=== PATIENT | female | born 1990 | race American Indian/Alaskan Native ===

== ENCOUNTER 2021-07-17 09:36 | Emergency (ER) | payer MEDICAID ==
--- NOTE | 2021-07-17 09:50 | Emergency Department Report ---
Minor Respiratory - HPI Chief Complaint: Sore Throat Stated Complaint: SWOLLEN TONSILS Time Seen by Provider: 07/17/21 09:49 Duration: 1 Day Pain Location: Throat Severity: mild Minor Respiratory: Yes Sore Throat, Yes Able to Tolerate Fluids, No Rhinorrhea, No Ear Pain, No Cough, No Sick Contacts, No Hemoptysis, No Chest Pain, No Shortness of Breath, No Fever Other History: Patient is a 31-year-old -[place] female that comes to the ER complaining of tonsil pain since yesterday. She states her tonsils are always swollen. She states that she needs them out but she has not followed up. She has no fever or chills. She is taking p.o. She comes to the ER and ambulance with 2 small children. She denies chest pain or shortness of breath. She is ambulatory, nontoxic [id number] in triage ED Review of Systems ROS: Stated complaint: SWOLLEN TONSILS Other details as noted in HPI Comment: All other systems reviewed and negative ED Past Medical Hx - Past Medical History Previous Medical History?: Yes - Surgical History Past Surgical History?: No - Family History Family history: no significant - Social History Smoking Status: Never Smoker Substance Use Type: None Minor Respiratory Exam - Exam General: Vital signs noted. No distress. Alert and acting appropriately. HEENT: Yes Pharyngeal Erythema, Yes Moist Mucous Membranes, No Pharyngeal Exudates, No Rhinorrhea, No Conjuctival Injection, No Frontal Tenderness, No Maxillary Tenderness Ear: Neither TM Bulge, Neither TM Erythema, Neither EAC Pain, Neither EAC Discharge Neck: Yes Supple, No Adenopathy Lungs: Yes Good Air Exchange, No Wheezes, No Ronchi, No Stridor, No Cough, No Labored Respirations, No Retractions, No Use of Accessory Muscles, No Other Abnormal Lung Sounds Heart: Yes Regular, No Murmur Abdomen: Yes Normal Bowel Sounds, No Tenderness, No Peritoneal Signs Skin: No Rash, No Edema Neurologic: Alert and oriented, no deficits. Musculoskeletal: Unremarkable. ED Medical Decision Making - Medical Decision Making ABCs intact. Vital signs normal. No indication for antibiotics. I have educated patient on the above. Although she is upset it is not in her best interest to give her antibiotics. Vital signs normal as documented by EMS Patient being discharged home with discharge plan of care including diet, activity, medications and follow-up. She verbalizes understanding - Differential Diagnosis Acute on chronic tonsil swelling Critical care attestation.: If time is entered above; I have spent that time in minutes in the direct care of this critically ill patient, excluding procedure time. ED Disposition Clinical Impression: Swollen tonsil Disposition: 01 HOME / SELF CARE / HOMELESS Is pt being admited?: No Does the pt Need Aspirin: No Condition: Stable Additional Instructions: You have no indication for antibiotics at this time. You need to see a primary care or ENT doctor for your nonmedical emergencies. I have given you referrals below. Motrin or Tylenol can be used for your pain. Referrals: WILLIAM ST MD [Staff Physician] - 3-5 Days KALEIGH GAYLE MD [Staff Physician] - 3-5 Days Time of Disposition: 09:50
== END 2021-07-18 09:31 | disposition home or self-care (01) ==
LOC: ED 09:36
DX: J35.1 Hypertrophy of tonsils (principal)
CPT/HCPCS: 99282